=== PATIENT | female | born 1970 ===

== ENCOUNTER 2016-10-06 06:10 | Day surgery (SDC) | payer BC ==
[2016-10-06] VITALS (9 sets, daily range): BP systolic 110–132; BP diastolic 70–83
[~2016-10-06] VITALS: Ht 180.3 cm; Wt 68.0 kg
[~2016-10-06 06:10] MED LIST: ceFAZolin 1gm in D5W 55ml IVP ONE; celeBREX 200mg Cap **SURGERY PATIENTS ONLY ORAL ONE; oxyCONTIN 20mg tab ORAL ONE
[2016-10-06] MEDS ORDERED: NKM (06:55)
--- NOTE | 2016-10-06 07:08 | Operative Note - PDOC ---
Operative Note Operative Note Pre-op Diagnosis: right knee lateral meniscus tear Procedure: right knee arthroscopy Post-op Diagnosis: same as pre-op plus Operative Findings: consistent w/pre-op dx studies Anesthesia: MAC Specimen: none Complications: none Condition: stable Estimated Blood Loss: none Implant(s) used?: MARY Crowley Oct 06, 2016 07:08
--- NOTE | 2016-10-06 07:08 | Pre-Procedure Note/Attestation ---
Pre-Procedure Note/Attestation Complete Prior to Procedure Planned Procedure: right Procedure Narrative: knee arthroscopic lateral menesectomy Indications for Procedure Pre-Operative Diagnosis: left knee lateral meniscus tear Attestation I attest that I discussed the nature of the procedure; its benefits; risks and complications; and alternatives (and the risks and benefits of such alternatives ), prior to the procedure, with the patient (or the patient's legal membership sales representative). I attest that, if there was a reasonable possibility of needing a blood transfusion, the patient (or the patient's legal membership sales representative) was given the [facility] standardized written summary, pursuant to the [place] Blood Safety Act ([place] Health and Safety Code # 1645, as amended). I attest that I re-evaluated the patient just prior to the surgery and that there has been no change in the patient's H&P, except as documented below: MARY SANCHEZ Oct 06, 2016 07:08
[2016-10-06] MEDS ORDERED: Tylenol #3 tab (300mg/30mg) ORAL PRN (07:15)
[2016-10-06] MEDS ORDERED: HYDROmorphone 1mg/ml Carpuject SUBQ PRN (07:15)
[2016-10-06] MEDS ORDERED: Norco 5mg/325mg tab ORAL PRN (07:15)
[2016-10-06] MEDS ORDERED: D5 1/2NS 1,000 ML IV SCH (08:00)
[2016-10-06] MEDS ORDERED: Midazolam 2mg/2ml Inj ONE (08:00)
[2016-10-06] MEDS ORDERED: NS Irrig 2000ml IRRIG ONE (08:00)
[2016-10-06] MEDS ORDERED: Propofol 10mg/ml 20ml IV ONE (08:00)
[2016-10-06] MEDS ORDERED: LR 1000ml ONE (08:00)
[2016-10-06] MEDS ORDERED: Morphine Sulfate PF 10 ML ONE (08:04)
[2016-10-06] MEDS ORDERED: Kenalog-40 1ml Vial ONE (08:04)
[2016-10-06] MEDS ORDERED: Ketorolac 30mg Inj ONE (08:04)
[2016-10-06] MEDS ORDERED: Bupivacaine 0.25% Inj 30ml INJ ONE (08:05)
[2016-10-06] MEDS ORDERED: Bupivacaine w/Epi 0.5% 30ml Vial INJ ONE (08:05)
[2016-10-06] MEDS ORDERED: EPINEPHrine 1mg/1ml Amp ONE (08:05)
[2016-10-06] MEDS ORDERED: Lidocaine 1% 10mg/ml/Epi 0.005mg/ml 30ml vial INJ ONE (08:05)
[2016-10-06] MEDS ORDERED: Duramorph PF 10mg/10ml amp EPIDUR ONE (08:15)
[2016-10-06] MEDS ORDERED: fentaNYL 100 mcg/2 mL IV PRN (09:00)
--- NOTE | 2016-10-06 16:45 | Operative Note - Dictated ---
DATE OF OPERATION: 10/06/2016 PREOPERATIVE DIAGNOSES: 1. Right knee lateral meniscus tear along the posterior horn and middle body of the lateral meniscus. 2. lateral tibial plateau. 3. Hypertrophic synovial tissue. 4. Hypertrophic fat pad syndrome. POSTOPERATIVE DIAGNOSES: 1. Right knee lateral meniscus tear along the posterior horn and middle body of the lateral meniscus. 2. lateral tibial plateau. 3. Hypertrophic synovial tissue. 4. Hypertrophic fat pad syndrome. PROCEDURES: 1. Right knee arthroscopy with partial lateral meniscectomy. 2. Synovectomy, lateral and patellofemoral compartment. SURGEON: Luan Guerrero M.D. ANESTHESIA: MAC. INDICATION FOR PROCEDURE: The patient pain in the right knee. She had an MRI, which showed a lateral meniscus tear along with some chondral damage to the knee. Given her acute right knee arthroscopic lateral meniscectomy. Risks, limitations, expectations, and complication of the procedure were discussed in detail. All questions addressed. DESCRIPTION OF PROCEDURE: After informed consent was obtained, the patient was taken to the operating room and placed under monitored anesthesia control. Tourniquet was applied to the right proximal thigh. Right leg was prepped and draped in a sterile manner. Time-out was performed. The portal sites injected with 0.25% Marcaine with epinephrine. Inferolateral stab incision was then made. Trocar introduced in the knee joint knee was performed. There is medial meniscus appeared to be intact. Hypertrophic bursal tissue medial and patellofemoral compartment. Lateral compartment was entered and there is a tear of the lateral meniscus. Working medial portal was established, synovectomy was performed to better visualize the intra-articular portion of the knee and allow better access. Partial lateral meniscectomy was performed. Debridement of the retropatellar fat pad was completed. Once that was done, the instruments removed. Portal sites were closed with 3-0 Monocryl sutures. Intraarticular injection containing 0.25 Marcaine with epinephrine, 30 mg of Toradol, and 40 mg of Kenalog was injected. The patient was awoken and taken to recovery room with stable vital signs. ESTIMATED BLOOD LOSS: Minimal. COMPLICATIONS: None. SPECIMENS: None. Luan Guerrero M.D. DR: KELVIN JOB#: [id number] CC:
== END 2016-10-06 10:30 | disposition home or self-care (01) ==
LOC: SUR 06:10
DX: M23.251 Derangement of posterior horn of lateral meniscus due to old tear or injury, right knee (principal); M67.261 Synovial hypertrophy, not elsewhere classified, right lower leg; M79.4 Hypertrophy of (infrapatellar) fat pad; Z86.61 Personal history of infections of the central nervous system
CPT/HCPCS: 29881; 97161; J0171; J0690; J1885; J2250; J2274; J2704; J3301; J3490; J7120; 94003; 94150